=== PATIENT | male | born 1985 | race Caucasian/White ===

== ENCOUNTER 2017-01-23 08:50 | Emergency (ER) | payer MEDICAID ==
[~2017-01-23] VITALS: Ht 180.3 cm; Wt 83.9 kg
[~2017-01-23 08:50] MED LIST: BACL10TA; BENA10TA47; CYCL5TAB89
[2017-01-23 10:50] VITALS: BP 141/102
== END 2017-01-23 11:08 | disposition home or self-care (01) ==
LOC: ER 08:50
DX: H66.92 Otitis media, unspecified, left ear (principal); Z87.891 Personal history of nicotine dependence